=== PATIENT | male | born 1995 | race Caucasian/White ===

== ENCOUNTER 2016-11-09 03:15 | Emergency (ER) | payer OTHER ==
[~2016-11-09] VITALS: Ht 167.6 cm; Wt 68.0 kg
[2016-11-09 03:21] VITALS: BP 112/63
--- NOTE | 2016-11-09 03:50 | NUR ---
PT TAKEN TO BED 8
--- NOTE | 2016-11-09 03:51 | NUR ---
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 PT STATES WAS FOUND BY YOUNGER BROTHER LYING ON FLOOR WITH FOAM COMING OUT OF HIS MOUTH. PT STATES HAS SIMILAR EPISODES IN THE PAST BUT NEVER NEING DIAGNOSED WITH SEIZURES. PT ON MONITOR, VSS. NO S/S OF DSITRESS NOTED AT THE MOMENT.ER MADE AWARE.
[2016-11-09 04:14] LABS: HEMATOCRIT 46.3 % (36-52); HEMOGLOBIN 15.2 g/dL (12.0-18.0); MEAN CORPUSCULAR HEMOGLOBIN 31 pg (27-31); MEAN CORPUSCULAR HGB CONC 33 g/dL (33-37); MEAN CORPUSCULAR VOLUME 94 fL (80-94); PLATELET COUNT (AUTO) 211 K/uL (140-450); RED BLOOD CELL COUNT(AUTO) 4.91 MIL/uL (4.20-6.10); RED CELL DISTRIBUTION WIDTH 12.2 % (11.6-13.7); WHITE BLOOD COUNT (AUTO) 6.9 K/uL (4.8-10.8)
[2016-11-09 04:16] LABS: APPEARANCE,URINE CLEAR (CLEAR); BILIRUBIN,URINE NEGATIVE (NEGATIVE); BLOOD, URINE NEGATIVE (NEGATIVE); COLOR,URINE YELLOW (YELLOW); LEUKOCYTE ESTERASE ,URINE NEGATIVE (NEGATIVE); NITRITE, URINE NEGATIVE (NEGATIVE); PH,URINE 6.5 (5.0-9.0); PROTEIN,URINE NEGATIVE (NEGATIVE); UGLUCOSE NEGATIVE (NEGATIVE)
--- NOTE | 2016-11-09 04:23 | NUR ---
PT RETURN FROM CT
[2016-11-09 04:29] LABS: AMPHETAMINE, URINE NEG. ng/ml (NEG <=1000); BARBITURATE, URINE NEG. ng/ml (NEG <=200); BENZODIAZEPINE, URINE NEG. ng/mL (NEG <=200); CANNABINOID, URINE NEG. ng/mL (NEG <=50); COCAINE, URINE NEG. ng/mL (NEG <=300); OPIATE, URINE NEG. ng/mL (NEG <=2000); PHENCYCLIDINE SCREEN,URINE NEG. ng/mL (NEG <=25)
[2016-11-09 04:32] LABS: BAND % (MANUAL) 0 % (0-8); EOSINOPHILS % (MANUAL) 2 % (0-4); LYMPHOCYTES % (MANUAL) 49 % (20-46); MONOCYTES % (MANUAL) 8 % (5-12); NEUTROPHILS % (MANUAL) 41 (43-65)
[2016-11-09 04:33] LABS: BACTERIA,URINE None Seen /HPF (None Seen); RBC,URINE 0-5 (RARE) /HPF (0-5); SQUAMOUS EPITHELIAL CELL,UR None Seen /LPF (0-3 (FEW)); WBC,URINE 0-5 (RARE) /HPF (0-5)
[2016-11-09 04:33] LABS: ALBUMIN 3.7 g/dL (3.4-5.0); ANION GAP 10.2 (8-16); CALCIUM 8.5 mg/dL (8.5-10.1); CARBON DIOXIDE 30.8 mmol/L (21-32); CREATININE 1.7 mg/dL (0.6-1.3); TOTAL BILIRUBIN 1.4 mg/dL (0.0-1.0); TOTAL PROTEIN, SERUM 7.1 g/dL (6.4-8.2)
--- NOTE | 2016-11-09 04:40 | NUR ---
PT RESTING IN BED, ON CARDIAC MIONITOR, VSS. NO S/S OF DSITRESS NOTED UP TO THIS POINT. WILL CONT TO MONITOR.
--- NOTE | 2016-11-09 05:38 | NUR ---
Dr. Benedict evaluating patient at bedside.
[2016-11-09 05:43] VITALS: BP 130/75
--- NOTE | 2016-11-09 05:43 | NUR ---
Patient discharged with v/s stable. Written and verbal after care instructions given and explained. Patient verbalized understanding. Ambulatory with steady gait. All questions addressed prior to discharge. Advised to follow up with PMD OR RETURN TO ER IF CONDITION WORSENS.
== END 2016-11-09 05:43 | disposition home or self-care (01) ==
LOC: MED 03:15
DX: R55 Syncope and collapse (principal)
CPT/HCPCS: 36415; 70450; 80053; 80305; 81001; 85025; 99285

== ENCOUNTER 2020-08-03 21:10 | Emergency (ER) | payer BC, OTHER ==
[~2020-08-03] VITALS: Ht 167.6 cm; Wt 71.7 kg
[2020-08-03 21:12] VITALS: BP 119/63
--- NOTE | 2020-08-03 21:14 | NUR ---
TO BED AMBULATORY
--- NOTE | 2020-08-03 21:24 | NUR ---
PATIENT BIB SELF C/O PAIN 310 IN THE THROAT X 1 DAY. PATIENT STATED HE ATE A "TAQUITO WITH A POSSIBLE TOOTHPICK INSIDE", "I FEEL LIKE THERES SOMETHING STUCK IN MY THROAT WHEN I SWALLOW". PATIENT DENIES N/V. BILATERAL LUNG SOUNDS CLEAR. NO NOTED RESPIRATORY DISTRESS. PATIENT DENIES SOB OR DIFFICULTY BREATHING. SEE COMPLETE ASSESSMENT FOR FURTHER DETAILS. MED HX: NONE. ALLERGIES: NKA.
--- NOTE | 2020-08-03 21:29 | NUR ---
PATIENT TAKEN BY [facility] VIA WHEELCHAIR.
--- NOTE | 2020-08-03 21:36 | NUR ---
PATIENT RETURNED TO ROOM BY [facility] VIA WHEELCHAIR.
--- NOTE | 2020-08-03 21:43 | NUR ---
ERMD AT BEDSIDE ASSESSING PATIENT.
[2020-08-03] MEDS ORDERED: IBUP-2213 PO (22:01)
[2020-08-03 22:11] VITALS: BP 119/63
== END 2020-08-03 22:11 | disposition home or self-care (01) ==
LOC: MED 21:10
DX: R07.0 Pain in throat (principal)
CPT/HCPCS: 70360; 99283